=== PATIENT | female | born 1995 | race Caucasian/White ===

== ENCOUNTER 2023-06-07 06:02 | Emergency (ER) | payer SELFPAY ==
[2023-06-07] MEDS ORDERED: diphenhydrAMINE 25 MG CAP ONE (06:30)
[2023-06-07] MEDS ORDERED: Ibuprofen 200 MG TAB ONE (06:30)
[2023-06-07] MEDS ORDERED: Lorazepam 2 MG/ML VIAL ONE ×2 (07:21→08:03)
[2023-06-07] MEDS ORDERED: Morphine 4 MG/ML VIAL ONE (08:45)
[2023-06-07] MEDS ORDERED: Ketorolac Tromethamine 30 MG/ML VIAL ONE (08:46)
[2023-06-07] MEDS ORDERED: Ondansetron PF 4 MG/2 ML Vial ONE (08:48)
[2023-06-07 09:31] LABS: #Eosinphils 0.1 10x3/uL (0.0-0.5); #Monocytes 0.8 10x3/uL (0.0-1.1); #Neutrophils 6.9 10x3/uL (1.5-8.4); %Basophils 0.3 % (0.0-2.0); %Eosinophils 0.8 % (0.0-6.0); %Lymphocytes 21.9 % (18.0-47.0); %Monocytes 8.1 % (0.0-10.0); %Neutrophils 68.7 % (40.0-75.0); Hematocrit 37.5 % (34.9-44.5); Hemoglobin 12.3 g/dL (12.0-15.5); Mean Corpuscular HGB CONC 32.8 g/dL (32.0-36.0); Mean Corpuscular Volume 85.2 fl (81.6-98.3); Mean Platelet Volume 10.6 fl (7.4-10.4); Platelet Count 412 10x3/uL (150-450); RBC Distribution Width 13.2 % (11.5-14.5)
[2023-06-07 09:38] LABS: BHCG - Serum Negative (NEGATIVE); Pregs Control Background? CLEAR/WHITE (CLR/WHITE); Pregs Control Bar Appear? YES (CONTROL BAR)
[2023-06-07 09:46] LABS: ALT (SGPT) 14 U/L (8-55); AST (SGOT) 15 U/L (5-34); Albumin 4.2 g/dL (3.5-5.0); Alkaline Phosphatase 76 U/L (40-110); Anion Gap 18 mmol/L (10-20); BUN (Urea Nitrogen) 15 mg/dL (7.0-18.7); Bilirubin, Total 0.8 mg/dL (0.2-1.2); CK (CPK) 48 U/L (29-168); Calc. Creatinine Clearance 0 mL/min (70-130); Calcium 8.9 mg/dL (7.8-10.44); Carbon Dioxide 19 mmol/L (22-29); Estimated GFR 109; Globulin 3.1 g/dL (2.4-3.5); Glucose 126 mg/dL (70-105); Protein, Total 7.3 g/dL (6.0-8.3)
[2023-06-07 10:56] LABS: Chloride 108 mmol/L (98-107); Potassium 3.8 mmol/L (3.5-5.1); Sodium 141 mmol/L (136-145)
== END 2023-06-07 11:40 | disposition home or self-care (01) ==
LOC: CSHERS 06:02
DX: T63.311A Toxic effect of venom of black widow spider, accidental (unintentional), initial encounter (principal); R25.2 Cramp and spasm; I10 Essential (primary) hypertension
CPT/HCPCS: 36415; 80053; 82550; 84703; 85025; 93005; 96361; 96374; 96375; 96376; J1885; J2060; J2270; J2405